=== PATIENT | female | born 1960 | race Caucasian/White ===

== ENCOUNTER 2025-04-11 04:09 | Inpatient (IN) | payer MEDICARE, OTHER, SELFPAY ==
[2025-04-11] VITALS (14 sets, daily range): BP systolic 115–137; BP diastolic 70–81; PULSE 81–105; TEMP 36.5–36.7; O2SAT 94–97; BMI 28.4
[2025-04-11 06:17] LABS: Hematocrit 32.4 % (36.0-48.0); Hemoglobin 11.5 g/dL (12.0-16.0); Immature Granulocytes Abs Auto 0.13 10^3/uL (0.00-0.03); Immature Granulocytes Pct Auto 1.4 % (0.0-0.5); Lymphocytes Absolute Auto 1.3 10^3/uL (1.2-3.8); Mean Corpuscular HGB Conc 35.5 g/dL (29.9-35.2); Mean Corpuscular Hemoglobin 28.8 pg (26.7-34.0); Mean Corpuscular Volume 81.2 fL (81.0-99.0); Platelet Count 526 10^3/uL (150-450); Red Blood Count 3.99 10^6/uL (4.20-5.40); White Blood Count 9.0 10^3/uL (4.0-11.0)
[2025-04-11] MEDS: 0.9 % SODIUM CHLORIDE 1,000 ML 70 ML IV (06:17)
[2025-04-11 06:42] LABS: Alanine Aminotransferase 7 U/L (14-59); Albumin Globulin Ratio 0.7; Albumin Level 2.9 g/dL (3.4-5.0); Alkaline Phosphatase 114 U/L (46-116); Anion Gap 15.7; Aspartate Amino Transferase 16 U/L (15-37); Blood Urea Nitrogen 10.0 mg/dL (7.0-18.0); Calcium 8.8 mg/dL (8.5-10.1); Carbon Dioxide 23.3 mmol/L (21.0-32.0); Chloride 86 mmol/L (98-107); Estimated GFR (African America >60 (>=60 mL/min/1.73m^2); Estimated GFR (Non-African Ame >60 (>=60 mL/min/1.73m^2); Globulin 4.0 g/dL; Glucose 113 mg/dL (74-106); Potassium 4.0 mmol/L (3.5-5.1); Thyroid Stimulating Hormone 0.700 uIU/mL (0.358-3.740); Total Protein 6.9 g/dL (6.4-8.2)
[2025-04-11 06:46] LABS: Sodium 121 mmol/L (136-145)
--- NOTE | 2025-04-11 08:15 | CM.NOTE ---
Rounds made with Dr. Hylton, pt will be inpatient status. Plan of care and reason for hospital admission discussed with pt. Alejandra Osborne for records on pt.
--- NOTE | 2025-04-11 09:37 | XR_ITS ---
The [address] [address] Patient Name: SANTOS PARRISH MRN: [id number] date: 1960 Sex: F Assigned Patient Location: [place] Current Patient Location: [place] Accession/Order Number: [id number] Exam Date: 04/11/2025 11:00 Report Date: 04/11/2025 11:56 At the request of: GELY MADSEN MD Procedure: XR chest 1V PORTABLE AP ERECT CHEST 1102 hours CLINICAL HISTORY: COPD, known lung mass COMPARISON: None The heart is within normal limits for size. There is asymmetric fullness of the right hilum and this could be adenopathy. There is a masslike opacity measuring 4 to 5 cm in size at the right apex. This may be patient's reported known malignancy. There is some stranding within the surrounding right upper lobe. The lungs are otherwise clear. No sizable effusion or pneumothorax is seen. The bony structures are osteopenic. There are mild degenerative changes at the spine and shoulders. XR/XR chest 1V IMPRESSION: MASSLIKE OPACITY AT THE RIGHT APEX PRESUMED TO BE PATIENT'S KNOWN MALIGNANCY. ASYMMETRY AT THE RIGHT HILUM THAT MAY BE ADENOPATHY. COMPARISON THE PRIOR EXISTING OUTSIDE STUDIES IS SUGGESTED. Impression dictated by: Celine Mcgovern M.D. 04/11/2025 11:56 AM Dictation Location: [place] [address] Electronically authenticated by: [id number] Y Date: 04/11/2025 11:56
--- NOTE | 2025-04-11 09:40 | P.HP_ITS ---
HPI H&P: HPI History of Present Illness Chief complaint: UTI HYPONATREMIA Narrative: Mrs. Macias is a 65-year-old female who had an outpatient blood work showing sodium level of 119. She was instructed to go to the emergency room. Patient went to [facility] emergency room. Hospitalist at [facility] declined to admit patient therefore hyponatremia. Attempt was made to transfer patient to Located within [facility] but there was no bed available ER physician gave the patient the option to transfer her to [place] or [place] but patient declined. Patient requested transfer to [place]. I had accepted. Patient denied any prior history of low sodium. Patient drinks water and coffee. Patient is known to have recent diagnosis of small cell lung cancer. She is smoker. No chest pain. No abdominal pain. Patient also was found to have abnormal UA showing 20 WBC. Opioid HPI Opioid Management Most Recent Pain and Opioid Data: Last Pain Scale 0 Today, 07:52 Last Pain Assessment Today, 04:15 Last ORT Total Score 1 Today, 04:15 Last ORT Risk Category Low Risk Today, 04:15 Review of Systems ROS Status of ROS 10 or more systems reviewed and unremark able except as noted in history and below [facility] Medical History (Updated 04/11/25 @ 09:42 by Monica Hylton MD) Paraneoplastic syndrome Acute hyponatremia ?E87.1 - Hypo-osmolality and hyponatremia (ICD-10) Sepsis ?A41.9 - Sepsis, unspecified organism (ICD-10) Pneumonia ?J18.9 - Pneumonia, unspecified organism (ICD-10) Renal cyst ?N28.1 - Cyst of kidney, acquired (ICD-10) Prediabetes ?R73.03 - Prediabetes (ICD-10) Kidney stones ?N20.0 - Calculus of kidney (ICD-10) Internal hemorrhoids ?K64.8 - Other hemorrhoids (ICD-10) HLD (hyperlipidemia) ?E78.5 - Hyperlipidemia, unspecified (ICD-10) Hyperparathyroidism ?E21.3 - Hyperparathyroidism, unspecified (ICD-10) Hilar mass ?R91.8 - Other nonspecific abnormal finding of lung field (ICD-10) Hiatal hernia ?K44.9 - Diaphragmatic hernia without obstruction or gangrene (ICD-10) Globus sensation ?R09.A2 - Foreign body sensation, throat (ICD-10) Fatty liver ?K76.0 - Fatty (change of) liver, not elsewhere classified (ICD-10) 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 - Other local lupus erythematosus (ICD-10) Colon polyps ?K63.5 - Polyp of colon (ICD-10) GERD (gastroesophageal reflux disease) ?K21.9 - Gastro-esophageal reflux disease without esophagitis (ICD-10) Cervical pain (neck) ?M54.2 - Cervicalgia (ICD-10) Thyroid nodule ?E04.1 - Nontoxic single thyroid nodule (ICD-10) Tonsillar hypertrophy ?J35.1 - Hypertrophy of tonsils (ICD-10) Depression ?F32.A - Depression, unspecified (ICD-10) High cholesterol ?E78.00 - Pure hypercholesterolemia, unspecified (ICD-10) Urinary tract infection ?N39.0 - Urinary tract infection, site not specified (ICD-10) Surgical History (Updated 04/11/25 @ 04:51 by Sally Del Rosario) Hx of neck surgery ?Z98.890 - Other specified postprocedural states (ICD-10) History of hysterectomy ?Z90.710 - Acquired absence of both cervix and uterus (ICD-10) History of bilateral salpingectomy ?Z90.79 - Acquired absence of other genital organ(s) (ICD-10) Family History (Updated 04/11/25 @ 05:18 by Chasity Beck) Sister Family history of ovarian cancer Family history of cancer Mother Family history of leukemia Father Family history of coronary artery disease Family history of stroke Social History (Updated 04/11/25 @ 04:53 by Sally Del Rosario) Within the past year, how often did you have a drink containing alcohol: never Within the past year, how often did you have six or more drinks on one occasion: never Score interpretation: A score less than 3 is consistent with normal alcohol consumption. 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 Known occupational exposures/hazards: No Highest level of school completed/degree received: high school graduate Do you want help with school or training: No Are you now , , , , never or living with a partner: In a typical week, how many times do you talk on the telephone with family, friends, or neighbors: 3 or more times per week How often do you get together with friends or relatives: 3 or more times per week How often do you attend roman catholic or restorationism services: never Do you belong to any clubs or organizations such as roman catholic groups unions, fraternal or athletic groups, or school groups: no Total score: 2 Score interpretation: A score of greater than or equal to 2 indicates the lowest level of social isolation. Little interest or pleasure in doing things: more than half the days Feeling down, depressed, or hopeless: more than half the days Feel stressed/tense/nervous/anxious/difficulty sleeping: not at all Due to disability, difficulty making decisions: No Do you think of yourself as: straight/heterosexual Gender Identity: female Meds Home Medications and Allergies Home Medications ?Medication ?Instructions ?Recorded ?Confirmed ?Type albuterol sulfate 90 mcg/actuation 2 inh inhalation Q6 H PRN shortness 04/11/25 04/11/25 History breath activated powder inhaler of breath or wheezing (ProAir RespiClick) fluoxetine 20 mg tablet 20 mg PO DAILY 04/11/2503/24 History hydrocortisone 2.5 % topical cream 1 applic ID BID PRN hemorrhoids 04/11/25 04/11/25 History with perineal applicator (Proctozone-HC) pantoprazole 40 mg tablet,delayed 40 mg PO DAILY 04/1104/11/25 History release rosuvastatin 10 mg tablet 10 mg PO .qhs 04/11/2504/11 History Allergies Allergy/AdvReac Type Severity Reaction Status Date / Time budesonide Allergy Unknown Nausea Verified 04/11/25 05:10 doxycycline Allergy Unknown Dizziness Verified 04/11/25 05:10 hydroxychloroquine Allergy Unknown wheal Verified 04/11/25 05:10 Exam Narrative Exam Narrative: [pt is awake and alert. oriented to place, time and person HEENT: [place] conjunctiva and NL buccal mucosa Neck: Supple, no tenderness Endocrine: No Thyromegaly. Vascular: No JVD or carotid bruit. Lymphatic: No cervical lymphadenopathy. Chest: CTA no DTP. Heart RRR, no extra sound or murmur. Abd: Soft, no tenderness, no rebound and no rigidity. Increase abd girth therefore clinically I could not exclude the possibility of intra abd mass or organomegaly. LE: No cyanosis or clubbing, no varices or edema. Neuro: A A O. Nl speech, comprehension and attention. Nl and symetrical motor and tone examination through out. []] Constitutional Vital Signs, click to edit/add: Last Vital Signs Temp 98.0 F 04/11/25 07:59 Pulse 87 04/11/25 08:00 Resp 16 04/11/25 07:59 BP 127/79 04/11/25 07:59 Pulse Ox 97 04/11/25 07:59 O2 Del Method Room Air 04/11/25 07:59 Results Labs Labs: Short CBC 04/11/25 Range/Units 05:59 WBC 9.0 (4.0-11.0) 10^3/uL Hgb 11.5 L (12.0-16.0) g/dL Hct 32.4 L (36.0-48.0) % Plt Count 526 H (150-450) 10^3/uL BMP 04/11/25 05:59 Sodium 121 L* Potassium 4.0 Chloride 86 L Carbon Dioxide 23.3 BUN 10.0 Creatinine 0.40 L Glucose 113 H Calcium 8.8 Liver Function 04/11/25 Range/Units 05:59 Total Bilirubin 0.6 (0.2-1.0) mg/dL AST 16 (15-37) U/L ALT 7 L (14-59) U/L Alkaline Phosphatase 114 (46-116) U/L Albumin 2.9 L (3.4-5.0) g/dL Assessment and Plan Assessment and Plan (1) Hyponatremia: (2) Anemia: (3) Smoker: (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 Sodium level was 118. This is likely multifactorial. Patient has recent diagnosis of small cell lung cancer which may be contributing to SIADH hyponatremia. Patient also drinks fair amount of water and coffee. This could be related to polydipsia. Patient is on SSRI which is also known to cause hyponatremia. Patient also has low chloride level. I suspect element of hypovolemic hyponatremia. I have accepted to admit patient to [place] as requested by patient due to Jesus Osborne hospitalist declined admitting her to the ER, no bed availability at [facility], and patient declined to go to [place] or [place] I would hold her SSRI I started the patient on water restriction I would start patient on normal saline at 70 an hour until I correct her hypovolemia then discontinue The goal is to correct her sodium level for no more than 6 to 8 mEq in 24 hours Telemetry Seizure precaution Requested phosphorus and magnesium level UTI. UA done at [facility] showed 20 WBC. I started patient on Levaquin. DVT prophylax Lovenox subcu Tobacco addiction Counseling and education were provided Start the patient on nicotine patch Recent diagnosis of small cell Patient is to follow-up with her oncology team at [facility], no evidence of acute blood loss. This could be related to underlying malignancy Patient will likely require to have anemia workup to be done in the outpatient setting to be handled by PCP in collaboration with other needed outpatient providers. This may include but not limited to EGD, colonoscopy, referral to see hematology and other needed age-appropriate cancer screening.
--- NOTE | 2025-04-11 10:25 | SWNOTE1 ---
Important Message from Medicare reviewed and discussed with patient. Pt. verbalized understanding and signed the form. Original given to patient and copy placed in patient?s chart.
--- NOTE | 2025-04-11 10:25 | SWNOTE1 ---
SW met with pt to discuss dc needs. Pt live at home with her . Pt is independent at home, does not use any DME, still drives, and has no services coming in. Pt has no anticipated discharge needs at this time. SW to follow as needed.
[2025-04-11] MEDS: ENOXAPARIN SODIUM 40 MG/0.4 ML SYRINGE SUBQ (10:36)
[2025-04-11] MEDS: PANTOPRAZOLE SODIUM 40 MG TABLET.DR PO (10:36)
[2025-04-11 14:21] LABS: Anion Gap 14.9; Blood Urea Nitrogen 11.0 mg/dL (7.0-18.0); Calcium 8.5 mg/dL (8.5-10.1); Carbon Dioxide 22.8 mmol/L (21.0-32.0); Chloride 88 mmol/L (98-107); Estimated GFR (African America >60 (>=60 mL/min/1.73m^2); Estimated GFR (Non-African Ame >60 (>=60 mL/min/1.73m^2); Glucose 144 mg/dL (74-106); Potassium 3.7 mmol/L (3.5-5.1)
[2025-04-11 14:25] LABS: Magnesium 1.9 mg/dL (1.8-2.4); Sodium 122 mmol/L (136-145)
[2025-04-11] MEDS: 0.9 % SODIUM CHLORIDE 1,000 ML 100 ML IV (21:58)
[2025-04-11 22:12] LABS: Anion Gap 13.8; Blood Urea Nitrogen 12.0 mg/dL (7.0-18.0); Calcium 8.2 mg/dL (8.5-10.1); Carbon Dioxide 23.9 mmol/L (21.0-32.0); Chloride 90 mmol/L (98-107); Estimated GFR (African America >60 (>=60 mL/min/1.73m^2); Estimated GFR (Non-African Ame >60 (>=60 mL/min/1.73m^2); Glucose 114 mg/dL (74-106); Potassium 3.7 mmol/L (3.5-5.1)
[2025-04-11] MEDS: ATORVASTATIN CALCIUM 40 MG TABLET PO (22:19)
[2025-04-11 22:24] LABS: Sodium 124 mmol/L (136-145)
[2025-04-12] VITALS (71 sets, daily range): BP systolic 117–157; BP diastolic 66–85; PULSE 79–104; TEMP 36.5–36.9; O2SAT 96–97
[2025-04-12] MEDS: PANTOPRAZOLE SODIUM 40 MG TABLET.DR PO (06:15)
[2025-04-12 07:40] LABS: Anion Gap 12.0; Blood Urea Nitrogen 10.0 mg/dL (7.0-18.0); Calcium 8.1 mg/dL (8.5-10.1); Carbon Dioxide 23.0 mmol/L (21.0-32.0); Chloride 91 mmol/L (98-107); Estimated GFR (African America >60 (>=60 mL/min/1.73m^2); Estimated GFR (Non-African Ame >60 (>=60 mL/min/1.73m^2); Glucose 116 mg/dL (74-106); Potassium 4.0 mmol/L (3.5-5.1)
[2025-04-12 08:11] LABS: Sodium 122 mmol/L (136-145)
[2025-04-12] MEDS: 0.9 % SODIUM CHLORIDE 1,000 ML 100 ML IV (08:14)
[2025-04-12] MEDS: ENOXAPARIN SODIUM 40 MG/0.4 ML SYRINGE SUBQ (08:20)
[2025-04-12] MEDS: SODIUM CHLORIDE 3 % 500 ML 30 ML IV (11:01)
--- NOTE | 2025-04-12 11:17 | P.PN_ITS ---
Progress Note: Subjective Subjective Interval history: No new symptoms since yesterday Exam Narrative Exam Narrative: [pt is awake and alert. oriented to place, time and person HEENT: [place] conjunctiva and NL buccal mucosa Neck: Supple, no tenderness Endocrine: No Thyromegaly. Vascular: No JVD or carotid bruit. Lymphatic: No cervical lymphadenopathy. Chest: CTA no DTP. Heart RRR, no extra sound or murmur. Abd: Soft, no tenderness, no rebound and no rigidity. Increase abd girth therefore clinically I could not exclude the possibility of intra abd mass or organomegaly. LE: No cyanosis or clubbing, no varices or edema. Neuro: A A O. Nl speech, comprehension and attention. Nl and symetrical motor and tone examination through out. []] Constitutional Vital Signs, click to edit/add: Last Vital Signs Temp 97.7 F 04/12/25 06:53 Pulse 97 H 04/12/25 10:00 Resp 16 04/12/25 06:53 BP 126/74 04/12/25 06:53 Pulse Ox 96 04/12/25 06:53 O2 Del Method Room Air 04/12/25 06:53 Progress Note: Objective Labs Labs: [facility] 04/11/25 04/11/25 04/12/25 09:56 14:01 07:11 Sodium 124 L* 122 L* 122 L* Potassium 3.7 3.7 4.0 Chloride 90 L 88 L 91 L Carbon Dioxide 23.9 22.8 23.0 BUN 12.0 11.0 10.0 Creatinine 0.59 0.49 L 0.38 L Glucose 114 H 144 H 116 H Calcium 8.2 L 8.5 8.1 L Progress Note: A&P Assessment and Plan (1) Hyponatremia: (2) Anemia: (3) Smoker: (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 Sodium level was 118. This is likely multifactorial. Patient has recent diagnosis of small cell lung cancer which may be contributing to SIADH hyponatremia. Patient also drinks fair amount of water and coffee. This could be related to polydipsia. Patient is on SSRI which is also known to cause hyponatremia. Patient also has low chloride level. I suspect element of hypovolemic hyponatremia. Her suspected hypovolemia had been corrected with normal saline infusion No significant change of sodium level. Continue water restriction. Discontinue normal saline infusion Start patient on 3% sodium Check BMP every 6 hours UTI. UA done at [facility] showed 20 WBC. I started patient on Levaquin. DVT prophylax Lovenox subcu Tobacco addiction Counseling and education were provided Start the patient on nicotine patch Recent diagnosis of small cell Patient is to follow-up with her oncology team at [facility] Anemia, no evidence of acute blood loss. This could be related to underlying malignancy Patient will likely require to have anemia workup to be done in the outpatient setting to be handled by PCP in collaboration with other needed outpatient providers. This may include but not limited to EGD, colonoscopy, referral to see hematology and other needed age-appropriate cancer screening. I discussed her case with her at the bedside.
[2025-04-12] MEDS: ARTIFICIAL TEARS 300 DROP/15 ML BOTTLE OP ×3 (16:05→21:33)
[2025-04-12 17:29] LABS: Anion Gap 8.7; Blood Urea Nitrogen 11.0 mg/dL (7.0-18.0); Calcium 8.0 mg/dL (8.5-10.1); Carbon Dioxide 24.3 mmol/L (21.0-32.0); Chloride 90 mmol/L (98-107); Estimated GFR (African America >60 (>=60 mL/min/1.73m^2); Estimated GFR (Non-African Ame >60 (>=60 mL/min/1.73m^2); Glucose 100 mg/dL (74-106); Potassium 4.0 mmol/L (3.5-5.1)
[2025-04-12 17:42] LABS: Sodium 119 mmol/L (136-145)
[2025-04-12] MEDS: ATORVASTATIN CALCIUM 40 MG TABLET PO (21:33)
[2025-04-12 22:09] LABS: Anion Gap 12.5; Blood Urea Nitrogen 11.0 mg/dL (7.0-18.0); Calcium 8.2 mg/dL (8.5-10.1); Carbon Dioxide 22.4 mmol/L (21.0-32.0); Chloride 97 mmol/L (98-107); Estimated GFR (African America >60 (>=60 mL/min/1.73m^2); Estimated GFR (Non-African Ame >60 (>=60 mL/min/1.73m^2); Glucose 112 mg/dL (74-106); Potassium 3.9 mmol/L (3.5-5.1); Sodium 128 mmol/L (136-145)
[2025-04-13] VITALS (56 sets, daily range): BP systolic 101–128; BP diastolic 61–75; PULSE 82–125; TEMP 36.6–36.8; O2SAT 95–97
[2025-04-13] MEDS: ARTIFICIAL TEARS 300 DROP/15 ML BOTTLE OP ×3 (05:40→21:16)
[2025-04-13] MEDS: PANTOPRAZOLE SODIUM 40 MG TABLET.DR PO (05:40)
[2025-04-13 06:55] LABS: Anion Gap 14.9; Blood Urea Nitrogen 8.0 mg/dL (7.0-18.0); Calcium 8.6 mg/dL (8.5-10.1); Carbon Dioxide 23.6 mmol/L (21.0-32.0); Chloride 93 mmol/L (98-107); Estimated GFR (African America >60 (>=60 mL/min/1.73m^2); Estimated GFR (Non-African Ame >60 (>=60 mL/min/1.73m^2); Glucose 116 mg/dL (74-106); Potassium 4.5 mmol/L (3.5-5.1); Sodium 127 mmol/L (136-145)
--- NOTE | 2025-04-13 09:18 | P.PN_ITS ---
Progress Note: Subjective Subjective Interval history: No new symptoms since yesterday Exam Narrative Exam Narrative: [pt is awake and alert. oriented to place, time and person HEENT: [place] conjunctiva and NL buccal mucosa Neck: Supple, no tenderness Endocrine: No Thyromegaly. Vascular: No JVD or carotid bruit. Lymphatic: No cervical lymphadenopathy. Chest: CTA no DTP. Heart RRR, no extra sound or murmur. Abd: Soft, no tenderness, no rebound and no rigidity. Increase abd girth therefore clinically I could not exclude the possibility of intra abd mass or organomegaly. LE: No cyanosis or clubbing, no varices or edema. Neuro: A A O. Nl speech, comprehension and attention. Nl and symetrical motor and tone examination through out. []] Constitutional Vital Signs, click to edit/add: Last Vital Signs Temp 97.9 F 04/13/25 08:00 Pulse 87 04/13/25 08:00 Resp 16 04/13/25 08:00 BP 124/75 04/13/25 08:00 Pulse Ox 96 04/13/25 08:00 O2 Del Method Room Air 04/13/25 08:00 Progress Note: Objective Labs Labs: BMP 04/12/25 04/12/25 04/13/25 17:05 21:56 06:29 Sodium 119 L* 128 L 127 L Potassium 4.0 3.9 4.5 Chloride 90 L 97 L 93 L Carbon Dioxide 24.3 22.4 23.6 BUN 11.0 11.0 8.0 Creatinine 0.45 L 0.50 L 0.41 L Glucose 100 112 H 116 H Calcium 8.0 L 8.2 L 8.6 Progress Note: A&P Assessment and Plan (1) Hyponatremia: (2) Anemia: (3) Smoker: (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 Sodium level was 118. This is likely multifactorial. Patient has recent diagnosis of small cell lung cancer which may be contributing to SIADH hyponatremia. Patient also drinks fair amount of water and coffee. This could be related to polydipsia. Patient is on SSRI which is also known to cause hyponatremia. Patient also has low chloride level. I suspect element of hypovolemic hyponatremia. Her suspected hypovolemia had been corrected with normal saline infusion. Normal saline has been discontinued Sodium level improved with the 3% sodium up to 128. Continue water restriction. Start the patient on sodium chloride tablet 1 dose of urea. Repeat BMP at 5 PM. UTI. UA done at [facility] showed 20 WBC. I started patient on Levaquin. Obtain culture report from [facility]. DVT prophylax Lovenox subcu Tobacco addiction Counseling and education were provided Start the patient on nicotine patch Recent diagnosis of small cell Patient is to follow-up with her oncology team at [facility] Anemia, no evidence of acute blood loss. This could be related to underlying malignancy Patient will likely require to have anemia workup to be done in the outpatient setting to be handled by PCP in collaboration with other needed outpatient providers. This may include but not limited to EGD, colonoscopy, referral to see hematology and other needed age-appropriate cancer screening. I discussed her case with her at the bedside on 04/12.
[2025-04-13] MEDS: UREA 15 GM POWD.PACK PO (09:19)
[2025-04-13] MEDS: ENOXAPARIN SODIUM 40 MG/0.4 ML SYRINGE SUBQ (09:19)
[2025-04-13] MEDS: SODIUM CHLORIDE 1,000 MG TABLET 2000 MG PO ×3 (09:19→21:19)
[2025-04-13 17:23] LABS: Anion Gap 13.3; Blood Urea Nitrogen 27.0 mg/dL (7.0-18.0); Calcium 8.4 mg/dL (8.5-10.1); Carbon Dioxide 22.8 mmol/L (21.0-32.0); Chloride 99 mmol/L (98-107); Estimated GFR (African America >60 (>=60 mL/min/1.73m^2); Estimated GFR (Non-African Ame >60 (>=60 mL/min/1.73m^2); Glucose 141 mg/dL (74-106); Potassium 4.1 mmol/L (3.5-5.1); Sodium 131 mmol/L (136-145)
--- NOTE | 2025-04-13 18:18 | PC.NURSE ---
UPDATED DR MADSEN ON LAST LABS TAKEN AT ABOUT 500 SODIUM IS AT 131 AND BUN 27 , GLUCOSE 141 CALCIUM 8.4.
[2025-04-13] MEDS: ROSUVASTATIN 10 MG PO (21:19)
[2025-04-14] VITALS (17 sets, daily range): BP systolic 113–114; BP diastolic 54–73; PULSE 88–105; TEMP 36.6–36.7; O2SAT 94–98
[2025-04-14 06:01] LABS: Anion Gap 14.7; Blood Urea Nitrogen 21.0 mg/dL (7.0-18.0); Calcium 9.0 mg/dL (8.5-10.1); Carbon Dioxide 24.5 mmol/L (21.0-32.0); Chloride 99 mmol/L (98-107); Estimated GFR (African America >60 (>=60 mL/min/1.73m^2); Estimated GFR (Non-African Ame >60 (>=60 mL/min/1.73m^2); Glucose 124 mg/dL (74-106); Potassium 4.2 mmol/L (3.5-5.1); Sodium 134 mmol/L (136-145)
[2025-04-14] MEDS: ARTIFICIAL TEARS 300 DROP/15 ML BOTTLE OP (06:03)
[2025-04-14] MEDS: PANTOPRAZOLE SODIUM 40 MG TABLET.DR PO (06:04)
[2025-04-14] MEDS: SODIUM CHLORIDE 1,000 MG TABLET 2000 MG PO (06:04)
--- NOTE | 2025-04-14 08:10 | CM.NOTE ---
Rounds made with Dr. Hylton, pt will discharge to home today. Pt will have f/u scheduled with PCP at discharge and Dr. Sim general surgeon for port placement.
--- NOTE | 2025-04-14 09:50 | SWNOTE1 ---
2nd notice of Important Message from Medicare provided to pt. No questions at this time.
--- NOTE | 2025-04-14 10:51 | PM.DS1 ---
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 Macias is a 65-year-old female who was transferred from [facility] to [facility] for further evaluation and treatment of her hyponatremia. Sodium level is 118. Severe hyponatremia. Sodium level was 118. This is likely multifactorial. Patient has recent diagnosis of small cell lung cancer which may be contributing to SIADH hyponatremia. Patient also drinks fair amount of water and coffee. This could be related to polydipsia. Patient is on SSRI which is also known to cause hyponatremia. Patient also has low chloride level. I suspect element of hypovolemic hyponatremia. Her suspected hypovolemia had been corrected with normal saline infusion. Normal saline has been discontinued Sodium level improved with the 3% sodium up to 128. Continue water restriction. Started the patient on sodium chloride tablet 1 dose of urea. Sodium level is 134 today. Patient is feeling well. No neurological symptoms. No confusion or disorientation. Patient will be discharged home on sodium chloride 2 tablets in the morning and 2 tablets in the evening. Recommend BMP next and the following Monday to monitor her sodium level and possible need for additional adjustment of sodium bicarb level. If patient continues to have hyponatremia despite the treatment with the sodium chloride, she may benefit from antidiuretic hormone receptor david. Patient will be referred to see nephrology in the outpatient setting to continue to monitor her sodium level and proceed with additional treatment as deemed to be appropriate. Patient will not resume taking SSRI to reduce risk of hyponatremia UTI. UA done at [facility] showed 20 WBC. I started patient on ceftriaxone. She had received thus far total 3 doses. Patient will be discharged home on oral cefuroxime for which the bacteria is sensitive to. Bacteria is resistant to quinolones. DVT prophylax Lovenox subcu Tobacco addiction Counseling and education were provided Start the patient on nicotine patch Recent diagnosis of small cell Patient is to follow-up with her oncology team at [facility], no evidence of acute blood loss. This could be related to underlying malignancy Patient will likely require to have anemia workup to be done in the outpatient setting to be handled by PCP in collaboration with other needed outpatient providers. This may include but not limited to EGD, colonoscopy, referral to see hematology and other needed age-appropriate cancer screening. Patient has multiple complex medical issues as listed above and others that are not listed. All appear to be stable. I do not have any clear or strong clinical justification to extend inpatient hospitalization. Patient however will require close and frequent monitoring as well as additional work-up, investigation and therapeutic intervention that could take place from this point on post discharge. That is to prevent relapse, decompensation, rehospitalization and other medical implications. I instructed patient to ask her primary care doctor to obtain [facility] record entirely to address abnormalities seen on labs and imaging that I have and have not addressed during this hospitalization, follow-up on pending blood work, imaging and pathology is if available and to follow-up on needed medical care in the outpatient setting. Time Spent with Patient Time attestation: Total time spent providing and/or coordinating discharge services: Exam Constitutional Vital Signs, click to edit/add: Last Vital Signs Temp 98 F 04/14/25 07:46 Pulse 99 H 04/14/25 10:00 Resp 14 04/14/25 08:10 BP 114/54 04/14/25 07:31 Pulse Ox 98 04/14/25 07:30 O2 Del Method Room Air 04/14/25 07:46 DS: Data Data Completed and Pending Labs on day of discharge: Labs from last 24 hours 04/14/25 04/13/25 04/11/25 05:27 17:06 21:56 Sodium 134 L 131 L 124 L* Potassium 4.2 4.1 3.7 Chloride 99 99 90 L Carbon Dioxide 24.5 22.8 23.9 Anion Gap 14.7 13.3 13.8 BUN 21.0 H 27.0 H 12.0 Creatinine 0.59 0.57 0.59 Est GFR ( Amer) >60 >60 >60 Est GFR (Non-Af Amer) >60 >60 >60 BUN/Creatinine Ratio 35.6 47.4 20.3 Glucose 124 H 141 H 114 H Calcium 9.0 8.4 L 8.2 L Discharge Plan Discharge Disposition: Home, Self-Care Discharge Medications: New nicotine 14 mg/24 hr Patch 24 Hour 14 mg transdermal Q24H Qty: 28 0RF sodium chloride 1,000 mg Tablet,Soluble 2,000 mg PO BID Qty: 120 1RF cefuroxime axetil 500 mg tablet 500 mg PO BID 7 Days Qty: 14 0RF Continued hydrocortisone [Proctozone-HC] 2.5 % cream with perineal applicator 1 applic SD BID PRN (Reason: hemorrhoids) rosuvastatin 10 mg tablet 10 mg PO .qhs ProAir RespiClick 90 mcg/actuation aerosol powdr breath activated 2 inh INHALATION Q6H PRN (Reason: shortness of breath or wheezing) Held pantoprazole 40 mg tablet,delayed release (DR/EC) 40 mg PO DAILY Hold Instructions: Resume on 04/21/25. Resume taking this medication after you complete your 7 days antibiotic treatment course Discontinued fluoxetine 20 mg tablet 20 mg PO DAILY Activity: increase activity as tolerated Diet: regular diet Print Language: Italian Patient Instructions: Hyponatremia (DC) Activity Restrictions/Additional Instructions: I may not have addressed or treated all of your medical illnesses or the abnormal blood work or imaging studies during this hospitalization. Please ask your primary care provider to obtain [facility] records entirely to follow up on all of the abnormal physical, laboratory, and imaging findings that I have not addressed. Please return back to the emergency room or seek medical attention if your symptoms worsen or return. Please avoid drinking excessive fluid such as water, tea, coffee, pop, juice. Drink small amount when you are thirsty. I would recommend that you have a blood test BMP this coming and next Monday to monitor your sodium level. If your sodium level is stable then I would recommend blood test BMP once a week for few weeks to ensure stability of your sodium level to be handled by your primary care doctor. If your sodium level continues to drop despite using salt tablets then you may benefit from a medication called Samsca. If your sodium level is drifting down then you may need to take more of salt tablet (sodium chloride tablet ) If your sodium level is going higher than 138, you may need to take less of salt tablet (sodium chloride tablet ) This will need to be managed by your primary care doctor in the outpatient setting. Please follow-up with your cancer doctor, Dr Aleman. Please follow-up with your surgeon regarding port insertion Discharging you from [facility] does not mean that your medical care ends here and now. You may still need additional monitoring, work up, investigation, and treatment plan to be handled from this point on by out patient providers including your primary care provider and specialists. For any medication question, please contact your retail pharmacist or your primary care provider. Thank you. Forms: Portal Instructions Referrals: DAHLIA GONSALES [Physician, Unknown] Referral Note: Regarding low sodium level CATALINA KING [Physician, Oncology] Referral Note: Regarding cancer care Follow Up Appointments: . 04/17 2 9:20am with Clara Gallegos NP [address] [phone] Fri. 05/02 @ 10:20am with Dr. Sim (gen. surgery) [facility] [address], [address], [place] [phone]
--- NOTE | 2025-04-14 11:43 | PC.NURSE ---
discharge instructions reviewed with pt and . both verbalize understanding. ambulated to exit with , discharged to private vehicle.
--- NOTE | 2025-04-14 11:52 | CM.NOTE ---
Discussed with pt f/u appointments that were scheduled and reason for each appointment. Pt provided with outpatient lab order form for chem 8 on 04/17 and Saturday 04/14. Pt verbalizes understanding.
--- NOTE | 2025-04-17 13:21 | CM.DCFOLLOWU ---
1st attempt 04/17/25, no answer
== END 2025-04-14 11:42 | disposition home or self-care (01) | DRG 644 ==
PROVIDERS: Admitting Provider Internal Medicine; PCP Internal Medicine; Visit Provider Internal Medicine
DX: E22.2 Syndrome of inappropriate secretion of antidiuretic hormone (principal); C34.90 Malignant neoplasm of unspecified part of unspecified bronchus or lung; N39.0 Urinary tract infection, site not specified; Z87.01 Personal history of pneumonia (recurrent); Z87.442 Personal history of urinary calculi; E21.3 Hyperparathyroidism, unspecified; K44.9 Diaphragmatic hernia without obstruction or gangrene; E78.00 Pure hypercholesterolemia, unspecified; Z87.440 Personal history of urinary (tract) infections; F32.A Depression, unspecified; Z86.0100 Personal history of colon polyps, unspecified; K76.0 Fatty (change of) liver, not elsewhere classified; Z90.710 Acquired absence of both cervix and uterus; Z90.79 Acquired absence of other genital organ(s); Z79.899 Other long term (current) drug therapy; D64.9 Anemia, unspecified; F17.200 Nicotine dependence, unspecified, uncomplicated
CPT/HCPCS: 36415; 71045; 80048; 80053; 82533; 83735; 83930; 84100; 84443; 85025; J0696; J1650; J7131